=== PATIENT | female | born 1940 | race Two or more races ===

== ENCOUNTER 2024-07-01 15:29 | Inpatient (IN) | payer OTHER ==
[~2024-07-01] VITALS: Ht 152.4 cm; Wt 61.2 kg
[2024-07-01] MEDS ORDERED: AMLODIPINE-OLM1 EACH PO (16:24)
[2024-07-01] MEDS ORDERED: SIMVASTATIN5 MG PO (16:24)
[2024-07-01] MEDS ORDERED: TOPROL XL25 M1 PO (16:25)
[2024-07-01] MEDS ORDERED: ELIQUIS2.5 MG PO (16:25)
[2024-07-01] MEDS ORDERED: LEVO-T112 MCG PO (16:25)
[2024-07-01] MEDS ORDERED: PROTONIX20 MG PO (16:26)
--- NOTE | 2024-07-01 16:26 | NUR ---
SE RECIBE PACIENTE ALERTA Y ORIENTADA, REFIERE DOLOR ABDOMINAR DESDE JOCELYN SEMANA CON VOMITO NAUSEAS Y FALTA DE APETITO
[2024-07-01] MEDS ORDERED: 0.9 % SODIUM CHLORIDE 500 ML IV ONE (18:15)
[2024-07-01] MEDS ORDERED: ONDANSETRON HCL 2 MG/ML VIAL IV ONE (18:15)
[2024-07-01] MEDS ORDERED: FAMOTIDINE/PF 20 MG/2 ML VIAL IV ONE (18:15)
--- NOTE | 2024-07-01 18:32 | NUR ---
PTE FEMENINA EVALUADA POR . SE ORIENTA SOBRE ORDEN DE TX REFIERE COMPRENDER. SE COLECTAN MUESTRAS DE LABORATORIOS Y SE CANALIZA VENA BAJO MEDIDAS ASEPTICAS. SE ADMINISTRAN MEDICAMENTOS, BAJO MEDIDAS ASEPTICAS. SE NOTIFICA A RADIOLOGIA PARA XRAY Y SONOGRAFIA.
[2024-07-01 18:54] LABS: HEMATOCRIT 40.6 % (36.0-45.00); HEMOGLOBIN 12.6 g/dL (12.0-15.00); MEAN CORPUSCULAR HEMOGLOBIN 21.1 pg (27.00-32.0); PLATELET COUNT 236 K/uL (150-450); RED BLOOD COUNT 5.96 M/uL (4.00-6.00); RED CELL DISTRIBUTION WIDTH 21.9 % (11.5-14.5)
[2024-07-01 19:02] LABS: ALBUMIN 3.9 gm/dL (3.4-5.0); BILIRUBIN TOTAL 1.06 mg/dL (0.3-1.2); CALCIUM 9.4 mg/dL (8.5-10.1); CREATININE SERUM 1.13 mg/dL (0.55-1.02); GFR 46.21; GLOBULINA 4.2 G/DL (2.4-3.5); POTASSIUM 3.42 mEq/L (3.5-5.1); TOTAL PROTEIN 8.1 gm/dL (6.4-8.2)
[2024-07-01 19:08] LABS: MEAN CELL VOLUME 68.1 fL (80.00-100.00)
[2024-07-01] MEDS ORDERED: DILTIAZEM HCL 25 MG/5 ML VIAL IV ONE (19:45)
[2024-07-01] MEDS ORDERED: DILTIAZEM HCL 125 MG in 0.9 % SODIUM CHLORIDE 125 ML IV SCH (19:45)
--- NOTE | 2024-07-01 20:11 | NUR ---
SE UBICA A PTE EN UNIDAD DE CHEST PAIN EN CAMA #17. SE CONECTA A MONITOR CARDIACO Y OXIMETRIA DE PULSO CONTINUA. SE CANALIZA EN BRAZO CECILY CON ANGIO #20, SE JOSH MUESTRAS DE LAB Y SE ADMINISTRA PIETER DE CARDIZEM 20MG Y SE COLOCA DRIP DE CARDIZEM 125/100ML A 5 MLS/HR
[2024-07-01 20:36] LABS: INR 1.05; PARTIAL THROMBOPLASTIN TIME 20.2 SECONDS (22.0-34.0); PROTHROMBIN TIME 11.4 SECONDS (9.0-11.5)
[2024-07-01 20:52] LABS: ALT/SGPT 22 U/L (12-78); AST/SGOT 30 U/L (15-37); LDH 438 U/L (84-246); PHOSPHOKINASE CREATININE 118 U/L (26-192)
--- NOTE | 2024-07-01 22:18 | NUR ---
SE ORIENTA PTE SOBRE TX A SEGUIR, LA MISMA REFIERE ENTENDER. SE INSERTA NGT EN FOSA NASAL IZQUIERDA BAJO MEDIDAS ASEPTICAS. SE CONECTA A SUCCION INTERMITENTE, Y DRENA AL MOMENTO 900ML
[2024-07-01] MEDS ORDERED: CEFTRIAXONE SODIUM 2,000 MG in 0.9 % SODIUM CHLORIDE 100 ML IV SCH (22:33)
[2024-07-01] MEDS ORDERED: ENOXAPARIN SODIUM 60 MG/0.6 ML SYRINGE SUBCUTANEO SCH (22:34)
[2024-07-01] MEDS ORDERED: MORPHINE SULFATE 4 MG/ML CARTRIDGE IV PRN (22:45)
[2024-07-01] MEDS ORDERED: 0.9 % SODIUM CHLORIDE 1,000 ML IV SCH (22:45)
[2024-07-01] MEDS ORDERED: ONDANSETRON HCL 4 MG in 0.9 % SODIUM CHLORIDE 50 ML IV PRN (22:45)
[2024-07-01] MEDS ORDERED: ACETAMINOPHEN 500 MG GEL..CAP PO PRN (22:45)
[2024-07-02] VITALS (10 sets, daily range): BP systolic 121–155; BP diastolic 60–87; O2SAT 98–100
[2024-07-02] MEDS ORDERED: METRONIDAZOLE/SODIUM CHLORIDE 100 ML IV SCH (01:00)
[2024-07-02 01:09] LABS: INR 1.06; PARTIAL THROMBOPLASTIN TIME 23.6 SECONDS (22.0-34.0); PROTHROMBIN TIME 11.5 SECONDS (9.0-11.5)
[2024-07-02 01:10] LABS: URINE APPEARANCE Clear; URINE BILIRRUBIN Negative (NEGATIVE); URINE BLOOD Trace; URINE COLOR Yellow; URINE GLUCOSE Negative (NEGATIVE); URINE KETONE 15 (NEGATIVE); URINE LEUKOCYTE Negative; URINE NITRATE Negative
[2024-07-02 01:14] LABS: URINE EPITHELIAL CELLS 2.3 uL (0.0-38.8); URINE RBC 8.8 uL (0.0-20.8); URINE WBC 7.8 uL (0.0-23.2)
[2024-07-02 01:17] LABS: C-REACTIVE PROTEIN < 0.29 MG/DL (0.00-0.29)
[2024-07-02 01:36] LABS: URINE CAST 0.91 uL (0.0-1.40); URINE PROTEIN 300 (NEGATIVE)
[2024-07-02] MEDS ORDERED: DILTIAZEM HCL 125 MG in 0.9 % SODIUM CHLORIDE 100 ML IV SCH (07:00)
[2024-07-02] MEDS ORDERED: FAMOTIDINE/PF 20 MG in 0.9 % SODIUM CHLORIDE 8 ML IV PUSH SCH (09:00)
[2024-07-03] VITALS (8 sets, daily range): BP systolic 111–127; BP diastolic 73–78; O2SAT 96–100
[2024-07-03 07:17] LABS: HEMATOCRIT 38.8 % (36.0-45.00); HEMOGLOBIN 12.3 g/dL (12.0-15.00); MEAN CORPUSCULAR HEMOGLOBIN 21.3 pg (27.00-32.0); MEAN CORPUSCULAR HGB CONC 31.6 g/dl (32.0-36.0); PLATELET COUNT 170 K/uL (150-450); RED BLOOD COUNT 5.78 M/uL (4.00-6.00); RED CELL DISTRIBUTION WIDTH 21.5 % (11.5-14.5)
[2024-07-03 07:20] LABS: MEAN CELL VOLUME 67.2 fL (80.00-100.00)
[2024-07-03 08:00] LABS: ALBUMIN 2.7 gm/dL (3.4-5.0); BILIRUBIN TOTAL 0.59 mg/dL (0.3-1.2); CALCIUM 7.7 mg/dL (8.5-10.1); CREATININE SERUM 0.95 mg/dL (0.55-1.02); GFR 56.46; GLOBULINA 3.1 G/DL (2.4-3.5); MAGNESIUM 2.3 mg/dL (1.8-2.4); PHOSPHOROUS 2.6 mg/dL (2.5-4.9); TOTAL PROTEIN 5.8 gm/dL (6.4-8.2)
[2024-07-03 08:29] LABS: C-REACTIVE PROTEIN 8.5 MG/DL (0.00-0.29); POTASSIUM 2.64 mEq/L (3.5-5.1)
[2024-07-03] MEDS ORDERED: POTASSIUM CHLORIDE 20MEQ/100ML H2O PB IV SCH (09:00)
[2024-07-03] MEDS ORDERED: MAGNESIUM SULFATE IN WATER 2 GM/50 ML PIGGYBAG IV NR (10:00)
[2024-07-03] MEDS ORDERED: DIATRIZOATE MEGLUMINE, SODIUM 30 ML BOTTLE PO NR (14:00)
[2024-07-04] VITALS (8 sets, daily range): BP systolic 105–119; BP diastolic 66–73; O2SAT 96–100
[2024-07-04] MEDS ORDERED: DIATRIZOATE MEGLUMINE, SODIUM 30 ML BOTTLE PO NR (08:15)
[2024-07-04] MEDS ORDERED: POTASSIUM CHLORIDE 20MEQ/100ML H2O PB IV SCH ×2 (13:00→21:00)
[2024-07-04] MEDS ORDERED: MORPHINE SULFATE 4 MG/ML VIAL IV ONE (22:10)
[2024-07-05] VITALS (8 sets, daily range): BP systolic 122–138; BP diastolic 64–79; O2SAT 95–100
[2024-07-05 01:16] LABS: ALBUMIN 2.9 gm/dL (3.4-5.0); BILIRUBIN TOTAL 0.62 mg/dL (0.3-1.2); CALCIUM 8.4 mg/dL (8.5-10.1); CREATININE SERUM 1.08 mg/dL (0.55-1.02); GFR 48.69; GLOBULINA 3.6 G/DL (2.4-3.5); POTASSIUM 3.21 mEq/L (3.5-5.1); TOTAL PROTEIN 6.5 gm/dL (6.4-8.2)
[2024-07-05] MEDS ORDERED: MORPHINE SULFATE 4 MG/ML VIAL IV STA (01:23)
[2024-07-05] MEDS ORDERED: MORPHINE SULFATE 4 MG/ML CARTRIDGE IV PRN (01:30)
[2024-07-05] MEDS ORDERED: POTASSIUM CHLORIDE IN WATER 100 ML IV SCH (13:00)
[2024-07-06] VITALS (8 sets, daily range): BP systolic 112–139; BP diastolic 52–85; O2SAT 95–100
[2024-07-06 08:04] LABS: HEMATOCRIT 40.8 % (36.0-45.00); HEMOGLOBIN 12.6 g/dL (12.0-15.00); MEAN CORPUSCULAR HGB CONC 30.9 g/dl (32.0-36.0); PLATELET COUNT 176 K/uL (150-450); RED CELL DISTRIBUTION WIDTH 22.3 % (11.5-14.5)
[2024-07-06 08:38] LABS: ALBUMIN 2.6 gm/dL (3.4-5.0); BILIRUBIN TOTAL 0.52 mg/dL (0.3-1.2); CALCIUM 8.1 mg/dL (8.5-10.1); CREATININE SERUM 0.92 mg/dL (0.55-1.02); GFR 58.59; GLOBULINA 3.2 G/DL (2.4-3.5); MAGNESIUM 2.1 mg/dL (1.8-2.4); POTASSIUM 3.69 mEq/L (3.5-5.1); TOTAL PROTEIN 5.8 gm/dL (6.4-8.2)
[2024-07-06 10:41] LABS: C-REACTIVE PROTEIN 18.4 MG/DL (0.00-0.29)
[2024-07-06] MEDS ORDERED: POTASSIUM PHOS,M-BASIC-D-BASIC 3 MM/ML VIAL IV SCH (17:00)
[2024-07-06] MEDS ORDERED: MEROPENEM 500 MG/VIAL VIAL IV SCH (21:00)
[2024-07-07] VITALS (7 sets, daily range): BP systolic 138–160; BP diastolic 75–87; O2SAT 97–100
[2024-07-07 07:47] LABS: ALBUMIN 2.7 gm/dL (3.4-5.0); BILIRUBIN TOTAL 0.52 mg/dL (0.3-1.2); CALCIUM 8.3 mg/dL (8.5-10.1); CREATININE SERUM 0.75 mg/dL (0.55-1.02); GFR 74.16; GLOBULINA 3.7 G/DL (2.4-3.5); MAGNESIUM 2.1 mg/dL (1.8-2.4); POTASSIUM 3.72 mEq/L (3.5-5.1); TOTAL PROTEIN 6.4 gm/dL (6.4-8.2)
[2024-07-07 08:16] LABS: HEMATOCRIT 39.2 % (36.0-45.00); HEMOGLOBIN 12.3 g/dL (12.0-15.00); MEAN CORPUSCULAR HEMOGLOBIN 21.2 pg (27.00-32.0); MEAN CORPUSCULAR HGB CONC 31.3 g/dl (32.0-36.0); PLATELET COUNT 177 K/uL (150-450); RED CELL DISTRIBUTION WIDTH 22.5 % (11.5-14.5)
[2024-07-07 08:30] LABS: MEAN CELL VOLUME 67.5 fL (80.00-100.00)
[2024-07-07 08:43] LABS: C-REACTIVE PROTEIN 17.1 MG/DL (0.00-0.29); PHOSPHOROUS 1.6 mg/dL (2.5-4.9)
[2024-07-07] MEDS ORDERED: SODIUM CHLORIDE 0.45 % 1,000 ML IV SCH (09:15)
[2024-07-07] MEDS ORDERED: DEXTROSE IV ONE (12:00)
[2024-07-07] MEDS ORDERED: POTASSIUM PHOS M BASIC D BASIC IV ONE (12:00)
[2024-07-07] MEDS ORDERED: WATER IV ONE (12:00)
[2024-07-07 12:43] LABS: URINE APPEARANCE Cloudy; URINE BILIRRUBIN Negative (NEGATIVE); URINE BLOOD Moderate; URINE COLOR Dark Yellow; URINE GLUCOSE Negative (NEGATIVE); URINE LEUKOCYTE Trace; URINE NITRATE Negative; URINE UROBILINOGEN 0.2 E.U./dl
[2024-07-07 12:47] LABS: URINE BACTERIA 23.2 uL (0.0-1933); URINE EPITHELIAL CELLS 5.5 uL (0.0-38.8); URINE RBC 1189.4 uL (0.0-20.8); URINE WBC 13.1 uL (0.0-23.2)
[2024-07-07 13:10] LABS: URINE CAST 0.88 uL (0.0-1.40); URINE KETONE 40 (NEGATIVE); URINE PROTEIN 100 (NEGATIVE)
[2024-07-07] MEDS ORDERED: SUCRALFATE 1 G TABLET PO SCH (17:00)
[2024-07-07] MEDS ORDERED: MAG HYDROX/ALUMINUM HYD/SIMETH 30 ML BLIST.PACK PO SCH (17:00)
[2024-07-08] VITALS (8 sets, daily range): BP systolic 127–137; BP diastolic 66–91; O2SAT 97–100
[2024-07-08] MEDS ORDERED: VANCOMYCIN HCL 5 MG/ML REDILUIDO IV SCH (21:00)
[2024-07-09] VITALS (8 sets, daily range): BP systolic 125–140; BP diastolic 63–80; O2SAT 98–100
[2024-07-09 07:42] LABS: HEMATOCRIT 36.9 % (36.0-45.00); HEMOGLOBIN 11.2 g/dL (12.0-15.00); MEAN CORPUSCULAR HEMOGLOBIN 20.7 pg (27.00-32.0); MEAN CORPUSCULAR HGB CONC 30.4 g/dl (32.0-36.0); PLATELET COUNT 222 K/uL (150-450); RED BLOOD COUNT 5.42 M/uL (4.00-6.00); RED CELL DISTRIBUTION WIDTH 22.7 % (11.5-14.5)
[2024-07-09 07:46] LABS: MEAN CELL VOLUME 68.1 fL (80.00-100.00)
[2024-07-09] MEDS ORDERED: DIATRIZOATE MEGLUMINE, SODIUM 30 ML BOTTLE PO STA (08:22)
[2024-07-09] MEDS ORDERED: PANTOPRAZOLE SODIUM 40 MG/VIAL VIAL IV SCH (09:00)
[2024-07-09 09:04] LABS: ALBUMIN 2.3 gm/dL (3.4-5.0); BILIRUBIN TOTAL 0.73 mg/dL (0.3-1.2); CALCIUM 7.9 mg/dL (8.5-10.1); CREATININE SERUM 0.63 mg/dL (0.55-1.02); GFR 90.69; GLOBULINA 3.3 G/DL (2.4-3.5); MAGNESIUM 2.2 mg/dL (1.8-2.4); PHOSPHOROUS 2.3 mg/dL (2.5-4.9); POTASSIUM 3.68 mEq/L (3.5-5.1); TOTAL PROTEIN 5.6 gm/dL (6.4-8.2)
[2024-07-09 09:23] LABS: C-REACTIVE PROTEIN 5.69 MG/DL (0.00-0.29)
[2024-07-09] MEDS ORDERED: VANCOMYCIN HCL 1,000 MG VIAL IV NR (11:30)
[2024-07-09] MEDS ORDERED: PANTOPRAZOLE SODIUM 80 MG in 0.9 % SODIUM CHLORIDE 100 ML IV SCH (11:45)
[2024-07-09] MEDS ORDERED: BISACODYL 10 MG/SUPP.RECT SUPP.RECT RECTAL NR (15:45)
[2024-07-09] MEDS ORDERED: METOCLOPRAMIDE HCL 5 MG/ML VIAL IV SCH (17:00)
[2024-07-10] VITALS (8 sets, daily range): BP systolic 90–114; BP diastolic 50–73; O2SAT 98–100
[2024-07-10] MEDS ORDERED: VANCOMYCIN HCL 5 MG/ML REDILUIDO IV SCH
[2024-07-10] MEDS ORDERED: NOREPINEPHRINE BITARTRATE 4 MG in DEXTROSE 5 % IN WATER 250 ML IV SCH (08:00)
[2024-07-10] MEDS ORDERED: NOREPINEPHRINE BITARTRATE 8 MG in DEXTROSE 5 % IN WATER 250 ML IV SCH (08:45)
[2024-07-10 08:49] LABS: HEMATOCRIT 30.7 % (36.0-45.00); HEMOGLOBIN 9.3 g/dL (12.0-15.00); MEAN CORPUSCULAR HEMOGLOBIN 20.8 pg (27.00-32.0); MEAN CORPUSCULAR HGB CONC 30.4 g/dl (32.0-36.0); PLATELET COUNT 230 K/uL (150-450); RED BLOOD COUNT 4.48 M/uL (4.00-6.00); RED CELL DISTRIBUTION WIDTH 22.2 % (11.5-14.5)
[2024-07-10 08:53] LABS: MEAN CELL VOLUME 68.5 fL (80.00-100.00)
[2024-07-10 10:25] LABS: ALBUMIN 2.4 gm/dL (3.4-5.0); BILIRUBIN TOTAL 0.97 mg/dL (0.3-1.2); CALCIUM 8.1 mg/dL (8.5-10.1); CREATININE SERUM 1.21 mg/dL (0.55-1.02); GFR 42.7; GLOBULINA 3.2 G/DL (2.4-3.5); POTASSIUM 4.46 mEq/L (3.5-5.1); TOTAL PROTEIN 5.6 gm/dL (6.4-8.2)
[2024-07-10] MEDS ORDERED: 0.9 % SODIUM CHLORIDE 1,000 ML IV SCH (13:37)
[2024-07-10 15:43] LABS: CALCIUM 7.9 mg/dL (8.5-10.1); CHOL HDL RATIO 2.3 (0-5.0); CREATININE SERUM 1.22 mg/dL (0.55-1.02); GFR 42.3; POTASSIUM 4.62 mEq/L (3.5-5.1)
[2024-07-10] MEDS ORDERED: AA 4.25%/CAL/LYTES/DEXT 5% 1,000 ML PERIFERAL SCH (17:00)
[2024-07-10 17:29] LABS: ABG PH 7.433 (7.35-7.45); ABG PO2 94.6 mmHg (80-100); ABG pCO2 32.3 mmHg (35-45); BASE EXCESS -2.2 mmol/l; BICARBONATE 21.1 mmol/l (23-25); SaO2 97.5 %; Tco2 22.1 mmol/l
[2024-07-10 17:55] LABS: allen test SATISFACTORY; o2 21 %; puncture site RADIAL RIGHT
[2024-07-11] VITALS (20 sets, daily range): BP systolic 73–166; BP diastolic 55–95; O2SAT 99–100
[2024-07-11 06:40] LABS: HEMATOCRIT 25.3 % (36.0-45.00); MEAN CORPUSCULAR HGB CONC 30.6 g/dl (32.0-36.0); PLATELET COUNT 229 K/uL (150-450); RED BLOOD COUNT 3.68 M/uL (4.00-6.00); RED CELL DISTRIBUTION WIDTH 22.5 % (11.5-14.5)
[2024-07-11] MEDS ORDERED: 0.9 % SODIUM CHLORIDE 500 ML IV ONE (06:45)
[2024-07-11 06:48] LABS: ALBUMIN 2.3 gm/dL (3.4-5.0); BILIRUBIN TOTAL 0.8 mg/dL (0.3-1.2); CALCIUM 7.9 mg/dL (8.5-10.1); CREATININE SERUM 1.4 mg/dL (0.55-1.02); GFR 36.09; GLOBULINA 2.9 G/DL (2.4-3.5); POTASSIUM 4.57 mEq/L (3.5-5.1); TOTAL PROTEIN 5.2 gm/dL (6.4-8.2)
[2024-07-11 07:59] LABS: HEMOGLOBIN 7.8 g/dL (12.0-15.00); MEAN CELL VOLUME 68.8 fL (80.00-100.00); MEAN CORPUSCULAR HEMOGLOBIN 21.1 pg (27.00-32.0)
[2024-07-11] MEDS ORDERED: ANIDULAFUNGIN 100 MG VIAL IV NR (18:00)
[2024-07-12] VITALS (20 sets, daily range): BP systolic 84–169; BP diastolic 53–99; O2SAT 95–100
[2024-07-12] MEDS ORDERED: VANCOMYCIN HCL 5 MG/ML REDILUIDO IV SCH (12:00)
[2024-07-12] MEDS ORDERED: VANCOMYCIN HCL 1,000 MG VIAL IV SCH (14:45)
[2024-07-12 15:28] LABS: BILIRUBIN TOTAL 0.82 mg/dL (0.3-1.2); CALCIUM 7.2 mg/dL (8.5-10.1); CREATININE SERUM 1.15 mg/dL (0.55-1.02); GFR 45.29; GLOBULINA 2.6 G/DL (2.4-3.5); POTASSIUM 4.01 mEq/L (3.5-5.1); TOTAL PROTEIN 4.6 gm/dL (6.4-8.2)
[2024-07-12] MEDS ORDERED: ANIDULAFUNGIN 100 MG VIAL IV SCH (17:00)
[2024-07-13] VITALS (23 sets, daily range): BP systolic 82–135; BP diastolic 51–96; O2SAT 15–109
[2024-07-13 17:26] LABS: MEAN CELL VOLUME 74.7 fL (80.00-100.00); MEAN CORPUSCULAR HGB CONC 32.6 g/dl (32.0-36.0); PLATELET COUNT 164 K/uL (150-450); RED BLOOD COUNT 2.91 M/uL (4.00-6.00)
[2024-07-13 17:29] LABS: HEMATOCRIT 21.7 % (36.0-45.00); HEMOGLOBIN 7.1 g/dL (12.0-15.00); MEAN CORPUSCULAR HEMOGLOBIN 24.3 pg (27.00-32.0)
[2024-07-13] MEDS ORDERED: 0.9 % SODIUM CHLORIDE 1,000 ML IV SCH (23:45)
[2024-07-14] VITALS (23 sets, daily range): BP systolic 10–116; BP diastolic 51–99; O2SAT 0–100
[2024-07-14] MEDS ORDERED: SERTRALINE HCL 50 MG TABLET PO SCH (09:00)
[2024-07-14 23:42] LABS: MEAN CELL VOLUME 79.9 fL (80.00-100.00); MEAN CORPUSCULAR HGB CONC 32.4 g/dl (32.0-36.0); PLATELET COUNT 145 K/uL (150-450); RED BLOOD COUNT 2.94 M/uL (4.00-6.00); RED CELL DISTRIBUTION WIDTH 20.6 % (11.5-14.5)
[2024-07-14 23:44] LABS: MEAN CORPUSCULAR HEMOGLOBIN 25.8 pg (27.00-32.0)
[2024-07-14 23:45] LABS: HEMATOCRIT 23.5 % (36.0-45.00); HEMOGLOBIN 7.6 g/dL (12.0-15.00)
[2024-07-15] VITALS (19 sets, daily range): BP systolic 64–142; BP diastolic 36–127; O2SAT 20–100
[2024-07-15 00:14] LABS: ALBUMIN 1.8 gm/dL (3.4-5.0); BILIRUBIN TOTAL 1.11 mg/dL (0.3-1.2); CALCIUM 7.5 mg/dL (8.5-10.1); CREATININE SERUM 0.76 mg/dL (0.55-1.02); GFR 73.04; GLOBULINA 2.4 G/DL (2.4-3.5); MAGNESIUM 1.8 mg/dL (1.8-2.4); POTASSIUM 3.85 mEq/L (3.5-5.1); TOTAL PROTEIN 4.2 gm/dL (6.4-8.2)
[2024-07-15 00:43] LABS: PHOSPHOROUS 1.6 mg/dL (2.5-4.9)
[2024-07-15] MEDS ORDERED: PANTOPRAZOLE SODIUM 80 MG in 0.9 % SODIUM CHLORIDE 100 ML IV SCH (02:45)
[2024-07-15] MEDS ORDERED: FUROsemide 20 MG/2 ML VIAL IV SCH (03:30)
[2024-07-15] MEDS ORDERED: DIATRIZOATE MEGLUMINE, SODIUM 30 ML BOTTLE PO NR (09:30)
[2024-07-15] MEDS ORDERED: CALCIUM GLUCONATE 100 MG/ML VIAL IV NR (09:30)
[2024-07-15] MEDS ORDERED: CALCIUM GLUCONATE 100 MG/ML VIAL IV ONE (16:00)
[2024-07-15] MEDS ORDERED: MEROPENEM 500 MG/VIAL VIAL IV SCH (21:00)
[2024-07-16] VITALS (8 sets, daily range): BP systolic 87–115; BP diastolic 56–72; O2SAT 98–100
[2024-07-16 00:36] LABS: HEMATOCRIT 29.6 % (36.0-45.00); MEAN CELL VOLUME 81.2 fL (80.00-100.00); MEAN CORPUSCULAR HEMOGLOBIN 27.4 pg (27.00-32.0); MEAN CORPUSCULAR HGB CONC 33.7 g/dl (32.0-36.0); PLATELET COUNT 161 K/uL (150-450); RED BLOOD COUNT 3.64 M/uL (4.00-6.00); RED CELL DISTRIBUTION WIDTH 18.7 % (11.5-14.5)
[2024-07-16 10:16] LABS: HEMATOCRIT 28.9 % (36.0-45.00); HEMOGLOBIN 9.6 g/dL (12.0-15.00); MEAN CELL VOLUME 83.4 fL (80.00-100.00); MEAN CORPUSCULAR HEMOGLOBIN 27.7 pg (27.00-32.0); MEAN CORPUSCULAR HGB CONC 33.3 g/dl (32.0-36.0); PLATELET COUNT 160 K/uL (150-450); RED BLOOD COUNT 3.46 M/uL (4.00-6.00); RED CELL DISTRIBUTION WIDTH 18.5 % (11.5-14.5)
[2024-07-16 11:08] LABS: PARTIAL THROMBOPLASTIN TIME 30.2 SECONDS (22.0-34.0)
[2024-07-16 11:09] LABS: ALBUMIN 1.9 gm/dL (3.4-5.0); BILIRUBIN TOTAL 0.84 mg/dL (0.3-1.2); BILIRUBIN,CONJUGATED 0.3 mg/dL (0.0-0.2); BILIRUBIN,UNCONJUGATED 0.54 mg/dL (0.0-0.6); CALCIUM 7.8 mg/dL (8.5-10.1); CHOL HDL RATIO 3.3 (0-5.0); CREATININE SERUM 0.88 mg/dL (0.55-1.02); GFR 61.67; GLOBULINA 2.5 G/DL (2.4-3.5); MAGNESIUM 2.1 mg/dL (1.8-2.4); POTASSIUM 4.12 mEq/L (3.5-5.1); TOTAL PROTEIN 4.4 gm/dL (6.4-8.2)
[2024-07-16] MEDS ORDERED: fentaNYL CITRATE 50 MCG/ML AMPUL IV PUSH ONE (22:00)
[2024-07-16] MEDS ORDERED: MIDAZOLAM HCL 2 MG/2 ML VIAL IV PUSH ONE (22:00)
[2024-07-17 04:00] VITALS: BP 104/89; O2SAT 100
[2024-07-17 07:00] VITALS: BP 100/54; O2SAT 100
[2024-07-17 09:45] LABS: HEMATOCRIT 27.5 % (36.0-45.00); HEMOGLOBIN 9.2 g/dL (12.0-15.00); MEAN CELL VOLUME 83.2 fL (80.00-100.00); MEAN CORPUSCULAR HGB CONC 33.6 g/dl (32.0-36.0); PLATELET COUNT 180 K/uL (150-450); RED CELL DISTRIBUTION WIDTH 19.4 % (11.5-14.5)
[2024-07-17 12:00] VITALS: BP 99/74; O2SAT 100
[2024-07-17 15:16] VITALS: BP 101/59; O2SAT 100
[2024-07-17 20:00] VITALS: BP 106/68; O2SAT 100
[2024-07-17 23:24] VITALS: BP 103/50; O2SAT 100
[2024-07-18] VITALS (7 sets, daily range): BP systolic 95–119; BP diastolic 52–93; O2SAT 96–100
[2024-07-18 06:34] LABS: HEMATOCRIT 24.2 % (36.0-45.00); MEAN CORPUSCULAR HEMOGLOBIN 28.1 pg (27.00-32.0); MEAN CORPUSCULAR HGB CONC 33.5 g/dl (32.0-36.0); PLATELET COUNT 155 K/uL (150-450); RED BLOOD COUNT 2.88 M/uL (4.00-6.00); RED CELL DISTRIBUTION WIDTH 20.1 % (11.5-14.5)
[2024-07-18 06:46] LABS: HEMOGLOBIN 8.1 g/dL (12.0-15.00)
[2024-07-18 07:02] LABS: ALBUMIN 1.6 gm/dL (3.4-5.0); BILIRUBIN TOTAL 0.59 mg/dL (0.3-1.2); CREATININE SERUM 0.67 mg/dL (0.55-1.02); GFR 84.47; GLOBULINA 2.3 G/DL (2.4-3.5); MAGNESIUM 2.1 mg/dL (1.8-2.4); PHOSPHOROUS 2.1 mg/dL (2.5-4.9); POTASSIUM 3.54 mEq/L (3.5-5.1); TOTAL PROTEIN 3.9 gm/dL (6.4-8.2)
[2024-07-18 07:03] LABS: CALCIUM 7.4 mg/dL (8.5-10.1)
[2024-07-18] MEDS ORDERED: MIDAZOLAM HCL 2 MG/2 ML VIAL IV PUSH ONE (12:45)
[2024-07-18 22:07] LABS: HEMATOCRIT 33.2 % (36.0-45.00); HEMOGLOBIN 10.9 g/dL (12.0-15.00); MEAN CELL VOLUME 85.1 fL (80.00-100.00); MEAN CORPUSCULAR HEMOGLOBIN 27.9 pg (27.00-32.0); MEAN CORPUSCULAR HGB CONC 32.8 g/dl (32.0-36.0); PLATELET COUNT 153 K/uL (150-450); RED CELL DISTRIBUTION WIDTH 18.5 % (11.5-14.5)
[2024-07-19 04:00] VITALS: BP 114/83; O2SAT 100
[2024-07-19 06:50] LABS: HEMATOCRIT 30.8 % (36.0-45.00); HEMOGLOBIN 10.5 g/dL (12.0-15.00); MEAN CELL VOLUME 84.7 fL (80.00-100.00); MEAN CORPUSCULAR HEMOGLOBIN 28.7 pg (27.00-32.0); MEAN CORPUSCULAR HGB CONC 33.9 g/dl (32.0-36.0); PLATELET COUNT 148 K/uL (150-450); RED BLOOD COUNT 3.64 M/uL (4.00-6.00); RED CELL DISTRIBUTION WIDTH 18.7 % (11.5-14.5)
[2024-07-19 07:17] VITALS: BP 100/86; O2SAT 100
[2024-07-19] MEDS ORDERED: PANTOPRAZOLE SODIUM 40 MG/VIAL VIAL IV SCH (09:34)
[2024-07-19 12:00] VITALS: BP 112/80; O2SAT 100
[2024-07-19 15:30] VITALS: BP 99/54; O2SAT 100
[2024-07-19 20:00] VITALS: BP 106/70
[2024-07-20] VITALS (7 sets, daily range): BP systolic 82–115; BP diastolic 50–77; O2SAT 100
[2024-07-20 05:20] LABS: URINE APPEARANCE Clear; URINE BILIRRUBIN Negative (NEGATIVE); URINE BLOOD Moderate; URINE COLOR Yellow; URINE GLUCOSE Negative (NEGATIVE); URINE KETONE Negative (NEGATIVE); URINE LEUKOCYTE Negative; URINE NITRATE Negative; URINE PROTEIN 30 (NEGATIVE)
[2024-07-20 05:23] LABS: URINE BACTERIA 20.7 uL (0.0-1933); URINE EPITHELIAL CELLS 6.9 uL (0.0-38.8); URINE WBC 6.1 uL (0.0-23.2)
[2024-07-20 05:24] LABS: HEMATOCRIT 31.7 % (36.0-45.00); HEMOGLOBIN 10.6 g/dL (12.0-15.00); MEAN CELL VOLUME 84.6 fL (80.00-100.00); MEAN CORPUSCULAR HEMOGLOBIN 28.3 pg (27.00-32.0); MEAN CORPUSCULAR HGB CONC 33.5 g/dl (32.0-36.0); PLATELET COUNT 149 K/uL (150-450); RED BLOOD COUNT 3.75 M/uL (4.00-6.00); RED CELL DISTRIBUTION WIDTH 18.8 % (11.5-14.5)
[2024-07-20 05:35] LABS: URINE CAST 0.29 uL (0.0-1.40)
[2024-07-20 05:50] LABS: ALBUMIN 1.5 gm/dL (3.4-5.0); BILIRUBIN TOTAL 0.57 mg/dL (0.3-1.2); CALCIUM 7.5 mg/dL (8.5-10.1); CREATININE SERUM 0.57 mg/dL (0.55-1.02); GFR 101.8; GLOBULINA 2.8 G/DL (2.4-3.5); POTASSIUM 3.12 mEq/L (3.5-5.1); TOTAL PROTEIN 4.3 gm/dL (6.4-8.2)
[2024-07-20 05:53] LABS: PHOSPHOROUS 1.9 mg/dL (2.5-4.9)
[2024-07-20] MEDS ORDERED: AMIODARONE HCL 200 MG TABLET PO SCH (09:00)
[2024-07-21 04:00] VITALS: BP 117/73; O2SAT 100
[2024-07-21 07:25] VITALS: BP 113/73; O2SAT 100
[2024-07-21] MEDS ORDERED: DIATRIZOATE MEGLUMINE, SODIUM 30 ML BOTTLE PO NR (09:30)
[2024-07-21] MEDS ORDERED: ONDANSETRON HCL 2 MG/ML VIAL IV PRN (10:30)
[2024-07-21 12:00] VITALS: BP 80/62; O2SAT 99
[2024-07-21 15:22] VITALS: BP 94/74; O2SAT 99
[2024-07-21 20:00] VITALS: BP 106/70; O2SAT 100
[2024-07-21 23:32] VITALS: BP 115/77; O2SAT 100
[2024-07-22] VITALS (9 sets, daily range): BP systolic 79–119; BP diastolic 56–83; O2SAT 94–100
[2024-07-22 06:47] LABS: HEMATOCRIT 31.5 % (36.0-45.00); HEMOGLOBIN 10.4 g/dL (12.0-15.00); MEAN CORPUSCULAR HEMOGLOBIN 28.5 pg (27.00-32.0); MEAN CORPUSCULAR HGB CONC 33.1 g/dl (32.0-36.0); PLATELET COUNT 167 K/uL (150-450); RED BLOOD COUNT 3.67 M/uL (4.00-6.00); RED CELL DISTRIBUTION WIDTH 18.9 % (11.5-14.5)
[2024-07-22 07:07] LABS: INR 1.07; PARTIAL THROMBOPLASTIN TIME 32.7 SECONDS (22.0-34.0); PROTHROMBIN TIME 11.6 SECONDS (9.0-11.5)
[2024-07-22 07:28] LABS: ALBUMIN 1.5 gm/dL (3.4-5.0); BILIRUBIN TOTAL 0.48 mg/dL (0.3-1.2); BILIRUBIN,CONJUGATED 0.21 mg/dL (0.0-0.2); BILIRUBIN,UNCONJUGATED 0.27 mg/dL (0.0-0.6); CHOL HDL RATIO 3.8 (0-5.0); CREATININE SERUM 0.49 mg/dL (0.55-1.02); GFR 121.21; MAGNESIUM 2.2 mg/dL (1.8-2.4); POTASSIUM 3.35 mEq/L (3.5-5.1); TOTAL PROTEIN 4.5 gm/dL (6.4-8.2)
[2024-07-22 08:24] LABS: PLATELET ESTIMATE NORMAL (NORMAL)
[2024-07-22] MEDS ORDERED: MEROPENEM 500 MG/VIAL VIAL IV SCH (20:00)
[2024-07-23 04:00] VITALS: BP 99/61; O2SAT 100
[2024-07-23 07:41] VITALS: BP 99/61; O2SAT 100
[2024-07-23] MEDS ORDERED: VANCOMYCIN HCL 5 MG/ML REDILUIDO IV SCH (09:00)
[2024-07-23 11:58] VITALS: BP 88/61; O2SAT 100
[2024-07-23 15:19] VITALS: BP 91/58; O2SAT 100
[2024-07-23 20:00] VITALS: BP 92/56; O2SAT 100
[2024-07-23 23:21] VITALS: BP 97/68; O2SAT 100
[2024-07-24 03:57] VITALS: BP 102/66; O2SAT 100
[2024-07-24 07:28] VITALS: BP 105/73; O2SAT 100
[2024-07-24 07:53] LABS: HEMOGLOBIN 9.3 g/dL (12.0-15.00); MEAN CELL VOLUME 89.3 fL (80.00-100.00); MEAN CORPUSCULAR HEMOGLOBIN 28.6 pg (27.00-32.0); MEAN CORPUSCULAR HGB CONC 32.1 g/dl (32.0-36.0); PLATELET COUNT 142 K/uL (150-450); RED BLOOD COUNT 3.25 M/uL (4.00-6.00); RED CELL DISTRIBUTION WIDTH 19.6 % (11.5-14.5)
[2024-07-24 08:19] LABS: ALBUMIN 1.4 gm/dL (3.4-5.0); BILIRUBIN TOTAL 0.42 mg/dL (0.3-1.2); CALCIUM 7.6 mg/dL (8.5-10.1); CREATININE SERUM 0.55 mg/dL (0.55-1.02); GFR 106.08; GLOBULINA 3.1 G/DL (2.4-3.5); MAGNESIUM 2.6 mg/dL (1.8-2.4); PHOSPHOROUS 2.3 mg/dL (2.5-4.9); POTASSIUM 3.93 mEq/L (3.5-5.1); TOTAL PROTEIN 4.5 gm/dL (6.4-8.2)
[2024-07-24 08:26] LABS: C-REACTIVE PROTEIN 4.56 MG/DL (0.00-0.29)
[2024-07-24 18:29] VITALS: BP 160/80; O2SAT 98
[2024-07-25 02:11] VITALS: BP 114/85; O2SAT 100
[2024-07-25 08:40] VITALS: BP 160/89; O2SAT 98
[2024-07-25 16:49] VITALS: BP 140/80
[2024-07-26 01:01] VITALS: BP 139/77; O2SAT 98
[2024-07-26 09:07] VITALS: BP 134/68; O2SAT 98
== END 2024-07-26 14:29 | DRG 329 ==
LOC: ER 15:31 → ICU 22:42 → ICU-2 22:42 → MEDJ 22:42 → ICU 07-12 20:52 → MEDJ 07-24 10:34
PROVIDERS: General Practice; Internal Medicine; Internal Medicine Infectious Disease; Nurse Practitioner Family; Surgery; ADMIT Internal Medicine; ATTEND Internal Medicine
PROC: BW21ZZZ Computerized Tomography (CT Scan) of Abdomen and Pelvis (ICD-10-PCS; 2024-07-01)
PROC: 0D9670Z Drainage of Stomach with Drainage Device, Via Natural or Artificial Opening (ICD-10-PCS; 2024-07-02)
PROC: 4A12X4Z Monitoring of Cardiac Electrical Activity, External Approach (ICD-10-PCS; 2024-07-02)
PROC: B246ZZZ Ultrasonography of Right and Left Heart (ICD-10-PCS; 2024-07-02)
PROC: BW21YZZ Computerized Tomography (CT Scan) of Abdomen and Pelvis using Other Contrast (ICD-10-PCS; 2024-07-03)
PROC: 0DJD0ZZ Inspection of Lower Intestinal Tract, Open Approach (ICD-10-PCS; 2024-07-04)
PROC: 0DB80ZZ Excision of Small Intestine, Open Approach (ICD-10-PCS; principal; 2024-07-04 19:30)
PROC: BW21YZZ Computerized Tomography (CT Scan) of Abdomen and Pelvis using Other Contrast (ICD-10-PCS; 2024-07-08)
PROC: 06HN33Z Insertion of Infusion Device into Left Femoral Vein, Percutaneous Approach (ICD-10-PCS; 2024-07-10)
PROC: 30233N1 Transfusion of Nonautologous Red Blood Cells into Peripheral Vein, Percutaneous Approach (ICD-10-PCS; 2024-07-11)
PROC: BW21YZZ Computerized Tomography (CT Scan) of Abdomen and Pelvis using Other Contrast (ICD-10-PCS; 2024-07-15)
PROC: 0W9G30Z Drainage of Peritoneal Cavity with Drainage Device, Percutaneous Approach (ICD-10-PCS; 2024-07-16)
PROC: 02HV33Z Insertion of Infusion Device into Superior Vena Cava, Percutaneous Approach (ICD-10-PCS; 2024-07-16)
PROC: 3E0436Z Introduction of Nutritional Substance into Central Vein, Percutaneous Approach (ICD-10-PCS; 2024-07-16)
PROC: 0DJ08ZZ Inspection of Upper Intestinal Tract, Via Natural or Artificial Opening Endoscopic (ICD-10-PCS; 2024-07-18)
PROC: BW21YZZ Computerized Tomography (CT Scan) of Abdomen and Pelvis using Other Contrast (ICD-10-PCS; 2024-07-21)
DX: K56.600 Partial intestinal obstruction, unspecified as to cause (principal); A41.9 Sepsis, unspecified organism; R65.21 Severe sepsis with septic shock; K55.8 Other vascular disorders of intestine; I48.20 Chronic atrial fibrillation, unspecified; K91.89 Other postprocedural complications and disorders of digestive system; E87.0 Hyperosmolality and hypernatremia; K92.2 Gastrointestinal hemorrhage, unspecified; K22.10 Ulcer of esophagus without bleeding; J98.11 Atelectasis; K91.870 Postprocedural hematoma of a digestive system organ or structure following a digestive system procedure; K56.0 Paralytic ileus; D64.89 Other specified anemias; R59.0 Localized enlarged lymph nodes; I11.9 Hypertensive heart disease without heart failure; E03.9 Hypothyroidism, unspecified; Z79.01 Long term (current) use of anticoagulants

== ENCOUNTER 2024-07-31 15:09 | Inpatient (IN) | payer OTHER ==
[~2024-07-31] VITALS: Ht 170.2 cm; Wt 68.0 kg
[~2024-07-31 15:09] MED LIST: AMLODIPINE-OLM1 EACH PO; ELIQUIS2.5 MG PO; HYDROCORTISONE SODIUM SUCC/PF 50 MG/ML ML IV SCH; LEVO-T112 MCG PO; PROTONIX20 MG PO; SIMVASTATIN5 MG PO; TOPROL XL25 M1 PO
[2024-07-31] MEDS ORDERED: LASIX20 MG PO (15:49)
--- NOTE | 2024-07-31 15:49 | NUR ---
SE RECIBE PTE FEMENINA ALERTA Y ORIENTADA EN PERSONA EN AMBULANCIA EN COMPANIA DE FAMILIAR Y PARAMEDICOS REFIEREN PRESION ARTERIAL BAJA, DEBILIDAD Y POSIBLE SEPSIS. PTE TRASLADADA DE "ENCOMPASS", PTE DE Y , FUE OPERADA EL PASADO MES POR OBSTRUCCION INTESTINAL. SE MIDE BP MANUAL 70/40MMHG, SE REALIZA EKG Y SE UBICA EN AREA DE CRITICO CAMA #2, SE CONECTA A MONITOR CARDIACO Y OXIMETRIA DE PULSO CONTINUA. SE OBSERVA PTE CON SONDA URINARIA CON SEDIMENTACION PROVENIENTE DE HOGAR, CANALIZADA CON ANGIO #20 EN MANO L+ DE AMBULANCIA.
--- NOTE | 2024-07-31 16:06 | NUR ---
SE CONECTA PACIENTE A MONITOR CARDIACO Y OXIMETRIA DE PULSO. SE CANALIZA DE MANO DERECHA # 20 Y SE COLOCA 500ML DE R/L FULL DRIP POR ORDEN VERBAL DE DR. RAMOS. SE TEO CANALIZACION DE MANO IZQUIERDA # 20 EN S/L. SE JOSH MUESTRA DE LABORATORIOS ORDENADAS VERBALMENTE POR DR. RAMOS. SE SAUMYA U/C Y U/C DE KRISSY ODELL. SE TEO CANULA A 3L/MIN.
[2024-07-31] MEDS ORDERED: RINGERS SOLUTION,LACTATED 500 ML IV STA (16:07)
[2024-07-31] MEDS ORDERED: NOREPINEPHRINE BITARTRATE 1 MG/ML AMPUL IV ONE (16:13)
[2024-07-31] MEDS ORDERED: NOREPINEPHRINE BITARTRATE 4 MG in DEXTROSE 5 % IN WATER 250 ML IV SCH (16:30)
[2024-07-31] MEDS ORDERED: PIPERACILLIN/TAZOBACTAM SODIUM 3.375 GM VIAL IV ONE (16:48)
[2024-07-31 16:58] LABS: HEMATOCRIT 32.8 % (36.0-45.00); MEAN CELL VOLUME 84.2 fL (80.00-100.00); MEAN CORPUSCULAR HEMOGLOBIN 28.3 pg (27.00-32.0); MEAN CORPUSCULAR HGB CONC 33.6 g/dl (32.0-36.0); RED BLOOD COUNT 3.89 M/uL (4.00-6.00); RED CELL DISTRIBUTION WIDTH 18.4 % (11.5-14.5)
[2024-07-31 17:00] LABS: URINE BACTERIA 1243.5 uL (0.0-1933); URINE CAST 2.65 uL (0.0-1.40); URINE EPITHELIAL CELLS 7.1 uL (0.0-38.8); URINE RBC 3341.5 uL (0.0-20.8); URINE WBC 273.1 uL (0.0-23.2)
[2024-07-31 17:00] LABS: PLATELET COUNT 75 K/uL (150-450)
[2024-07-31 17:21] LABS: INR 1.32; PROTHROMBIN TIME 14.1 SECONDS (9.0-11.5)
[2024-07-31 17:22] LABS: PH,URINE 6.5 (5.0-8.0); URINE APPEARANCE Clear; URINE BILIRRUBIN Negative (NEGATIVE); URINE BLOOD Large; URINE COLOR Orange; URINE GLUCOSE Negative (NEGATIVE); URINE KETONE Negative (NEGATIVE); URINE LEUKOCYTE Moderate; URINE NITRATE Negative; URINE PROTEIN Trace (NEGATIVE); URINE UROBILINOGEN 0.2 E.U./dl
[2024-07-31 17:36] LABS: ALBUMIN 1.6 gm/dL (3.4-5.0); BILIRUBIN TOTAL 0.62 mg/dL (0.3-1.2); BILIRUBIN,CONJUGATED 0.29 mg/dL (0.0-0.2); BILIRUBIN,UNCONJUGATED 0.33 mg/dL (0.0-0.6); CALCIUM 7.6 mg/dL (8.5-10.1); CREATININE SERUM 0.68 mg/dL (0.55-1.02); GFR 83.04; TOTAL PROTEIN 4.8 gm/dL (6.4-8.2)
[2024-07-31 17:40] LABS: POTASSIUM 2.75 mEq/L (3.5-5.1)
[2024-07-31] MEDS ORDERED: POTASSIUM CHLORIDE/NACL 0.9% 20 MEQ/1,000 ML PIGGYBAG IV ONE (17:45)
[2024-07-31] MEDS ORDERED: PIPERACILLIN/TAZOBACTAM SODIUM 3.375 GM VIAL IV SCH (18:00)
[2024-07-31] MEDS ORDERED: POTASSIUM CHLORIDE/D5-0.9%NACL 20 MEQ/1,000 ML PIGGYBAG IV ONE (19:58)
[2024-07-31] MEDS ORDERED: IPRATROPIUM BROMIDE 0.5 MG/2.5 ML AMPUL.NEB IH SCH (20:22)
[2024-07-31] MEDS ORDERED: MEROPENEM 500 MG/VIAL VIAL IV SCH (20:27)
[2024-07-31] MEDS ORDERED: ACETAMINOPHEN 500 MG GEL..CAP PO PRN (20:30)
[2024-07-31] MEDS ORDERED: ONDANSETRON HCL 4 MG in 0.9 % SODIUM CHLORIDE 50 ML IV PRN (20:30)
[2024-07-31] MEDS ORDERED: ALBUMIN HUMAN-25 0.25GM/ML (50ML) VIAL IV ONE (20:30)
[2024-07-31] MEDS ORDERED: 0.9 % SODIUM CHLORIDE 1,000 ML IV SCH (20:30)
[2024-07-31] MEDS ORDERED: POTASSIUM CHLORIDE IN WATER 100 ML IV SCH (21:00)
[2024-07-31 22:13] LABS: PHOSPHOROUS 2.7 mg/dL (2.5-4.9); T4 FREE 0.23 NG/ML (0.76-1.46)
[2024-07-31 22:17] LABS: FREE TRIODOTIRONINE < 0.50 pg/ml (2.18-3.98)
[2024-07-31 22:50] VITALS: BP 81/69; O2SAT 100
[2024-07-31 23:55] VITALS: BP 107/80; O2SAT 99
[2024-08-01] VITALS (21 sets, daily range): BP systolic 64–127; BP diastolic 47–98; O2SAT 94–100
[2024-08-01] MEDS ORDERED: NOREPINEPHRINE BITARTRATE 1 MG/ML AMPUL IV ONE (05:43)
[2024-08-01] MEDS ORDERED: LEVOTHYROXINE SODIUM 137 MCG TABLET PO SCH (06:00)
[2024-08-01] MEDS ORDERED: LEVOTHYROXINE SODIUM 100 MCG/VIAL VIAL IV STA (07:00)
[2024-08-01] MEDS ORDERED: FUROsemide 20 MG/2 ML VIAL IV SCH (09:00)
[2024-08-01] MEDS ORDERED: METOPROLOL SUCCINATE 25 MG TAB.SR.24H PO SCH (09:00)
[2024-08-01] MEDS ORDERED: PANTOPRAZOLE SODIUM 40 MG/VIAL VIAL IV SCH (09:00)
[2024-08-01 10:26] LABS: PROCALCITONIN 0.148 ng/ml (0.020-0.080)
[2024-08-01] MEDS ORDERED: PROPOFOL 10,000 MCG/ML VIAL ONE (10:40)
[2024-08-01] MEDS ORDERED: POLYVINYL ALCOHOL 15 ML DROPS OP SCH (10:58)
[2024-08-01] MEDS ORDERED: CHLORHEXIDINE GLUCONATE 15ML BRUSH KIT MM SCH (10:58)
[2024-08-01] MEDS ORDERED: FentaNYL CITRATE/PF 1,000 MCG in 0.9 % SODIUM CHLORIDE 100 ML IV SCH (11:00)
[2024-08-01 12:03] LABS: CORTISOL 29.75 ug/dl
[2024-08-01] MEDS ORDERED: VANCOMYCIN HCL 1,000 MG VIAL ONE (16:14)
[2024-08-01] MEDS ORDERED: NOREPINEPHRINE BITARTRATE 8 MG in DEXTROSE 5 % IN WATER 250 ML IV SCH (16:30)
[2024-08-01] MEDS ORDERED: VANCOMYCIN HCL 1,000 MG VIAL IV SCH (17:00)
[2024-08-01 22:58] LABS: ABG PH 7.563 (7.35-7.45); ABG PO2 151.6 mmHg (80-100); ABG pCO2 29.6 mmHg (35-45); BASE EXCESS 4.8 mmol/l; BICARBONATE 26.1 mmol/l (23-25); allen test SATISFACTORY; o2 21 %; puncture site RADIAL RIGHT
[2024-08-01 22:59] LABS: SaO2 99.6 %
[2024-08-02] VITALS (24 sets, daily range): BP systolic 88–193; BP diastolic 36–177; O2SAT 84–100
[2024-08-02] MEDS ORDERED: NOREPINEPHRINE BITARTRATE 1 MG/ML AMPUL IV ONE (05:48)
[2024-08-02 06:49] LABS: HEMATOCRIT 26.3 % (36.0-45.00); MEAN CORPUSCULAR HGB CONC 33.9 g/dl (32.0-36.0); RED BLOOD COUNT 3.17 M/uL (4.00-6.00); RED CELL DISTRIBUTION WIDTH 18.7 % (11.5-14.5)
[2024-08-02 06:52] LABS: HEMOGLOBIN 8.9 g/dL (12.0-15.00); PLATELET COUNT 75 K/uL (150-450)
[2024-08-02 07:45] LABS: ALBUMIN 1.8 gm/dL (3.4-5.0); BILIRUBIN TOTAL 0.75 mg/dL (0.3-1.2); CALCIUM 7.3 mg/dL (8.5-10.1); CREATININE SERUM 0.87 mg/dL (0.55-1.02); GFR 62.49; GLOBULINA 2.4 G/DL (2.4-3.5); MAGNESIUM 1.8 mg/dL (1.8-2.4); PHOSPHOROUS 2.1 mg/dL (2.5-4.9); TOTAL PROTEIN 4.2 gm/dL (6.4-8.2)
[2024-08-02 08:03] LABS: C-REACTIVE PROTEIN 3.84 MG/DL (0.00-0.29)
[2024-08-02 08:04] LABS: POTASSIUM 2.94 mEq/L (3.5-5.1)
[2024-08-02] MEDS ORDERED: POTASSIUM CHLORIDE IN WATER 100 ML IV NR (08:30)
[2024-08-02 08:48] LABS: MYCOPLASMA PNEUMONIAE IGM NON REACTIVE (NO REACTIVE)
[2024-08-02] MEDS ORDERED: AMIODARONE HCL 200 MG TABLET NGT SCH (09:00)
[2024-08-02] MEDS ORDERED: PANTOPRAZOLE SODIUM 80 MG in 0.9 % SODIUM CHLORIDE 100 ML IV SCH (09:00)
[2024-08-02 12:56] LABS: ABG PH 7.509 (7.35-7.45); ABG PO2 429.3 mmHg (80-100); ABG pCO2 36.3 mmHg (35-45); BASE EXCESS 5.2 mmol/l; BICARBONATE 28.2 mmol/l (23-25); Tco2 29.3 mmol/l
[2024-08-02 12:57] LABS: allen test NO SATISFACTORY; o2 80 %; puncture site RADIAL RIGHT
[2024-08-02] MEDS ORDERED: POTASSIUM CHLORIDE IN WATER 40 MEQ/100 ML PIGGYBAG IV NR (15:00)
[2024-08-02] MEDS ORDERED: VANCOMYCIN HCL 1,000 MG VIAL ONE (15:21)
[2024-08-02] MEDS ORDERED: HYDROCORTISONE SODIUM SUCC/PF 50 MG/ML ML IV ONE (15:45)
[2024-08-02] MEDS ORDERED: HYDROCORTISONE SODIUM SUCC/PF 100 MG VIAL ONE (15:53)
[2024-08-02] MEDS ORDERED: CIPROFLOXACIN IN 5 % DEXTROSE 200 ML IV SCH (17:00)
[2024-08-02] MEDS ORDERED: AMINO ACIDS/PROTEIN HYDROLYS 30 ML BLIST.PACK NGT SCH (17:00)
[2024-08-02] MEDS ORDERED: HYDROCORTISONE SODIUM SUCC/PF 100 MG VIAL IV SCH (20:00)
[2024-08-03] VITALS (23 sets, daily range): BP systolic 63–150; BP diastolic 47–97; O2SAT 94–100
[2024-08-03 03:38] LABS: HEMATOCRIT 29.6 % (36.0-45.00); HEMOGLOBIN 9.8 g/dL (12.0-15.00); MEAN CELL VOLUME 83.5 fL (80.00-100.00); MEAN CORPUSCULAR HEMOGLOBIN 27.7 pg (27.00-32.0); MEAN CORPUSCULAR HGB CONC 33.2 g/dl (32.0-36.0); PLATELET COUNT 48 K/uL (150-450); RED BLOOD COUNT 3.54 M/uL (4.00-6.00); RED CELL DISTRIBUTION WIDTH 17.8 % (11.5-14.5)
[2024-08-03] MEDS ORDERED: POTASSIUM CHLORIDE IN WATER 40 MEQ/100 ML PIGGYBAG IV ONE (06:45)
[2024-08-03] MEDS ORDERED: LEVOTHYROXINE SODIUM 100 MCG/VIAL VIAL IV NR (10:30)
[2024-08-03 11:00] LABS: ABG PH 7.536 (7.35-7.45); ABG PO2 121.5 mmHg (80-100); ABG pCO2 33.3 mmHg (35-45); BASE EXCESS 5.3 mmol/l; BICARBONATE 27.5 mmol/l (23-25); SaO2 99.2 %; Tco2 28.6 mmol/l
[2024-08-03 11:01] LABS: allen test SATISFACTORY; o2 40 %; puncture site RADIAL RIGHT
[2024-08-03] MEDS ORDERED: POTASSIUM PHOS,M-BASIC-D-BASIC 3 MM/ML VIAL IV NR (13:15)
[2024-08-03] MEDS ORDERED: POTASSIUM CHLORIDE IN WATER 40 MEQ/100 ML PIGGYBAG IV NR (13:15)
[2024-08-03] MEDS ORDERED: HYDROCORTISONE SODIUM SUCC/PF 50 MG/ML ML IV SCH (14:00)
[2024-08-03] MEDS ORDERED: SODIUM CL 0.9% 100 ML IV.SOLN IV ONE (14:26)
[2024-08-03] MEDS ORDERED: VANCOMYCIN HCL 1,000 MG VIAL ONE (16:24)
[2024-08-03] MEDS ORDERED: FentaNYL CITRATE/PF 1,000 MCG in 0.9 % SODIUM CHLORIDE 100 ML IV SCH (18:00)
[2024-08-04] VITALS (26 sets, daily range): BP systolic 49–131; BP diastolic 22–101; O2SAT 81–100
[2024-08-04 08:52] LABS: ABG PH 7.518 (7.35-7.45); ABG PO2 148.5 mmHg (80-100); ABG pCO2 31.3 mmHg (35-45); BASE EXCESS 2.8 mmol/l; BICARBONATE 24.9 mmol/l (23-25); SaO2 99.5 %; Tco2 25.8 mmol/l
[2024-08-04 08:53] LABS: allen test SATISFACTORY; o2 40 %; puncture site RADIAL RIGHT
[2024-08-04 10:23] LABS: HEMATOCRIT 31.8 % (36.0-45.00); HEMOGLOBIN 10.8 g/dL (12.0-15.00); MEAN CORPUSCULAR HEMOGLOBIN 27.9 pg (27.00-32.0); RED BLOOD COUNT 3.88 M/uL (4.00-6.00); RED CELL DISTRIBUTION WIDTH 18.3 % (11.5-14.5)
[2024-08-04 10:27] LABS: PLATELET COUNT 60 K/uL (150-450)
[2024-08-04 10:46] LABS: ALBUMIN 1.8 gm/dL (3.4-5.0); CALCIUM 7.6 mg/dL (8.5-10.1); CREATININE SERUM 0.96 mg/dL (0.55-1.02); GFR 55.78; GLOBULINA 2.9 G/DL (2.4-3.5); POTASSIUM 3.32 mEq/L (3.5-5.1); TOTAL PROTEIN 4.7 gm/dL (6.4-8.2)
[2024-08-04] MEDS ORDERED: VANCOMYCIN HCL 1,000 MG VIAL ONE (15:48)
[2024-08-05 03:57] VITALS: BP 93/76; O2SAT 100
[2024-08-05 07:11] VITALS: BP 119/89; O2SAT 98
[2024-08-05] MEDS ORDERED: IPRATROPIUM BROMIDE 0.5 MG/2.5 ML AMPUL.NEB IH ONE (12:00)
[2024-08-05] MEDS ORDERED: RACEPINEPHRINE HCL 0.5 ML AMPUL IH NR (12:00)
[2024-08-05 12:22] VITALS: BP 87/73; O2SAT 98
[2024-08-05 15:20] VITALS: BP 107/82
[2024-08-05 15:33] LABS: ABG PH 7.457 (7.35-7.45); ABG PO2 98.5 mmHg (80-100); BASE EXCESS 1.6 mmol/l; BICARBONATE 25.2 mmol/l (23-25); Tco2 26.3 mmol/l; allen test SATISFACTORY; o2 36 %; puncture site RADIAL LEFT
[2024-08-05 15:34] LABS: ABG pCO2 36.5 mmHg (35-45)
[2024-08-05 16:37] LABS: ABG PH 7.501 (7.35-7.45); ABG PO2 139.8 mmHg (80-100); ABG pCO2 31.6 mmHg (35-45)
[2024-08-05 16:38] LABS: BASE EXCESS 1.8 mmol/l; BICARBONATE 24.2 mmol/l (23-25); SaO2 99.4 %; Tco2 25.1 mmol/l; allen test SATISFACTORY; o2 40 %; puncture site RADIAL RIGHT
[2024-08-05] MEDS ORDERED: VANCOMYCIN HCL 1,000 MG VIAL ONE (17:18)
[2024-08-05 21:08] VITALS: BP 92/74; O2SAT 100
[2024-08-06] VITALS (7 sets, daily range): BP systolic 88–117; BP diastolic 60–85; O2SAT 96–100
[2024-08-06 11:53] LABS: HEMATOCRIT 29.7 % (36.0-45.00); HEMOGLOBIN 10.2 g/dL (12.0-15.00); MEAN CELL VOLUME 83.1 fL (80.00-100.00); MEAN CORPUSCULAR HEMOGLOBIN 28.4 pg (27.00-32.0); MEAN CORPUSCULAR HGB CONC 34.2 g/dl (32.0-36.0); PLATELET COUNT 52 K/uL (150-450); RED BLOOD COUNT 3.58 M/uL (4.00-6.00); RED CELL DISTRIBUTION WIDTH 18.3 % (11.5-14.5)
[2024-08-06 12:45] LABS: ALBUMIN 1.8 gm/dL (3.4-5.0); BILIRUBIN TOTAL 0.92 mg/dL (0.3-1.2); CALCIUM 7.5 mg/dL (8.5-10.1); CREATININE SERUM 0.95 mg/dL (0.55-1.02); GFR 56.46; GLOBULINA 2.7 G/DL (2.4-3.5); POTASSIUM 3.27 mEq/L (3.5-5.1); TOTAL PROTEIN 4.5 gm/dL (6.4-8.2)
[2024-08-06] MEDS ORDERED: MIDODRINE HCL 5 MG TABLET PO SCH (13:00)
[2024-08-06] MEDS ORDERED: VANCOMYCIN HCL 1,000 MG VIAL ONE (15:41)
[2024-08-06] MEDS ORDERED: CEFEPIME HCL 2,000 MG VIAL IV SCH (21:00)
[2024-08-07 04:00] VITALS: BP 94/53; O2SAT 100
[2024-08-07 07:00] VITALS: BP 91/61; O2SAT 97
[2024-08-07] MEDS ORDERED: AMIODARONE HCL 200 MG TABLET NGT SCH (09:00)
[2024-08-07] MEDS ORDERED: PANTOPRAZOLE SODIUM 40 MG in 0.9 % SODIUM CHLORIDE 8 ML IV PUSH SCH ×2 (09:00)
[2024-08-07] MEDS ORDERED: POTASSIUM CHLORIDE 20MEQ/100ML H2O PB IV NR (09:15)
[2024-08-07] MEDS ORDERED: FUROsemide 20 MG/2 ML VIAL IV SCH (11:38)
[2024-08-07 12:00] VITALS: BP 103/69; O2SAT 97
[2024-08-07] MEDS ORDERED: LEVOTHYROXINE SODIUM 100 MCG/VIAL VIAL IV NR (15:00)
[2024-08-07 15:25] VITALS: BP 102/48; O2SAT 100
[2024-08-07] MEDS ORDERED: VANCOMYCIN HCL 1,000 MG VIAL ONE (15:45)
[2024-08-07] MEDS ORDERED: ANIDULAFUNGIN 100 MG VIAL IV NR (17:00)
[2024-08-07] MEDS ORDERED: POTASSIUM CHLORIDE 20MEQ/100ML H2O PB IV SCH (17:00)
[2024-08-07 20:55] VITALS: BP 86/59; O2SAT 100
[2024-08-07] MEDS ORDERED: HYDROCORTISONE SODIUM SUCC/PF 100 MG VIAL IV SCH (21:00)
[2024-08-07 23:26] VITALS: BP 86/73; O2SAT 100
[2024-08-08 03:58] VITALS: BP 100/73; O2SAT 100
[2024-08-08 06:57] VITALS: BP 115/79; O2SAT 100
[2024-08-08 07:05] LABS: HEMATOCRIT 29.4 % (36.0-45.00); HEMOGLOBIN 10.1 g/dL (12.0-15.00); MEAN CELL VOLUME 82.9 fL (80.00-100.00); MEAN CORPUSCULAR HEMOGLOBIN 28.4 pg (27.00-32.0); MEAN CORPUSCULAR HGB CONC 34.3 g/dl (32.0-36.0); RED BLOOD COUNT 3.55 M/uL (4.00-6.00); RED CELL DISTRIBUTION WIDTH 17.4 % (11.5-14.5)
[2024-08-08 07:15] LABS: PLATELET COUNT 44 K/uL (150-450)
[2024-08-08 08:00] LABS: ALBUMIN 1.5 gm/dL (3.4-5.0); BILIRUBIN TOTAL 0.77 mg/dL (0.3-1.2); CALCIUM 7.6 mg/dL (8.5-10.1); CREATININE SERUM 0.84 mg/dL (0.55-1.02); GFR 65.07; GLOBULINA 2.7 G/DL (2.4-3.5); POTASSIUM 3.21 mEq/L (3.5-5.1); TOTAL PROTEIN 4.2 gm/dL (6.4-8.2)
[2024-08-08 08:44] LABS: T4 TOTAL 12.29 UG/DL (4.8-13.9)
[2024-08-08 08:47] LABS: TSH 16.4 uIU/mL (0.358-3.74)
[2024-08-08] MEDS ORDERED: HYDROCORTISONE SODIUM SUCC/PF 50 MG/ML ML IV SCH ×2 (09:00→21:00)
[2024-08-08] MEDS ORDERED: HYDROCORTISONE SODIUM SUCC/PF 100 MG VIAL IV SCH (09:00)
[2024-08-08 12:14] VITALS: BP 95/73; O2SAT 99
[2024-08-08 15:17] VITALS: BP 100/86; O2SAT 95
[2024-08-08] MEDS ORDERED: POTASSIUM CHLORIDE IN WATER 100 ML IV NR (16:00)
[2024-08-08] MEDS ORDERED: ANIDULAFUNGIN 100 MG VIAL IV SCH (17:00)
[2024-08-08] MEDS ORDERED: IPRATROPIUM BROMIDE 0.5 MG/2.5 ML AMPUL.NEB IH SCH (18:00)
[2024-08-08] MEDS ORDERED: IPRATROPIUM BROMIDE 0.5 MG/2.5 ML AMPUL.NEB IH ONE (18:43)
[2024-08-08 20:00] VITALS: BP 89/59; O2SAT 89
[2024-08-08] MEDS ORDERED: NOREPINEPHRINE BITARTRATE 1 MG/ML AMPUL IV ONE ×2 (22:58→22:59)
[2024-08-08 23:04] VITALS: BP 70/32; O2SAT 92
[2024-08-08 23:26] LABS: ABG pCO2 35.2 mmHg (35-45); BASE EXCESS -0.2 mmol/l; BICARBONATE 23.4 mmol/l (23-25); SaO2 74.6 %; Tco2 24.5 mmol/l
[2024-08-08 23:27] LABS: allen test SATISFACTORY; o2 100 %; puncture site RADIAL RIGHT
[2024-08-08] MEDS ORDERED: NOREPINEPHRINE BITARTRATE 8 MG in DEXTROSE 5 % IN WATER 250 ML IV SCH (23:30)
[2024-08-08] MEDS ORDERED: AMIODARONE IN DEXTROSE,ISO-OSM 360 MG/200 ML IV.SOLN IV ONE (23:45)
[2024-08-09] VITALS (21 sets, daily range): BP systolic 67–145; BP diastolic 44–109; O2SAT 85–100
[2024-08-09] MEDS ORDERED: IPRATROPIUM BROMIDE 0.5 MG/2.5 ML AMPUL.NEB IH ONE ×2 (00:09→06:03)
[2024-08-09] MEDS ORDERED: PROPOFOL 10,000 MCG/ML VIAL ONE (00:48)
[2024-08-09 04:46] LABS: ABG PH 7.321 (7.35-7.45); ABG PO2 42.5 mmHg (80-100); ABG pCO2 34.8 mmHg (35-45); BASE EXCESS -7.6 mmol/l; BICARBONATE 17.5 mmol/l (23-25); SaO2 72.2 %; Tco2 18.6 mmol/l
[2024-08-09 04:47] LABS: allen test SATISFACTORY; o2 100 %; puncture site RADIAL RIGHT
[2024-08-09] MEDS ORDERED: FentaNYL CITRATE/PF 1,000 MCG in 0.9 % SODIUM CHLORIDE 100 ML IV SCH (07:45)
[2024-08-09] MEDS ORDERED: MIDAZOLAM HCL 50 MG in 0.9 % SODIUM CHLORIDE 50 ML IV SCH (07:45)
[2024-08-09 08:51] LABS: HEMATOCRIT 35.1 % (36.0-45.00); HEMOGLOBIN 11.4 g/dL (12.0-15.00); MEAN CELL VOLUME 84.3 fL (80.00-100.00); MEAN CORPUSCULAR HEMOGLOBIN 27.3 pg (27.00-32.0); MEAN CORPUSCULAR HGB CONC 32.4 g/dl (32.0-36.0); RED BLOOD COUNT 4.17 M/uL (4.00-6.00); RED CELL DISTRIBUTION WIDTH 18.3 % (11.5-14.5)
[2024-08-09 08:55] LABS: PLATELET COUNT 42 K/uL (150-450)
[2024-08-09] MEDS ORDERED: POLYVINYL ALCOHOL 15 ML DROPS OP SCH (09:00)
[2024-08-09] MEDS ORDERED: CHLORHEXIDINE GLUCONATE 15ML BRUSH KIT MM SCH (09:00)
[2024-08-09 09:31] LABS: MAGNESIUM 1.8 mg/dL (1.8-2.4); PHOSPHOROUS 2.6 mg/dL (2.5-4.9)
[2024-08-09 09:33] LABS: C-REACTIVE PROTEIN 17.3 MG/DL (0.00-0.29); CKMB 3.9 NG/ML (0.5-3.6)
[2024-08-09 09:38] LABS: MANUAL PLATELET COUNT 94
[2024-08-09 11:13] LABS: ABG PH 7.363 (7.35-7.45); ABG PO2 81.2 mmHg (80-100); ABG pCO2 34.3 mmHg (35-45); BASE EXCESS -5.4 mmol/l; BICARBONATE 19.1 mmol/l (23-25); SaO2 95.2 %; Tco2 20.1 mmol/l
[2024-08-09] MEDS ORDERED: DEXTROSE 5%-WATER 250ML IV.SOLN ONE (11:16)
[2024-08-09] MEDS ORDERED: PHENYLEPHRINE HCL 10 MG/ML AMPUL ONE (11:16)
[2024-08-09] MEDS ORDERED: PHENYLEPHRINE HCL 80 MG in 0.9 % SODIUM CHLORIDE 1,000 ML IV SCH (11:30)
[2024-08-09] MEDS ORDERED: NOREPINEPHRINE BITARTRATE 16 MG in DEXTROSE 5 % IN WATER 500 ML IV SCH (11:30)
[2024-08-09] MEDS ORDERED: HYDROCORTISONE SODIUM SUCC/PF 50 MG/ML ML IV SCH (12:00)
[2024-08-09] MEDS ORDERED: POTASSIUM CHLORIDE IN WATER 100 ML IV NR (14:15)
[2024-08-09 15:23] LABS: allen test SATISFACTORY; o2 100 %; puncture site RADIAL RIGHT
[2024-08-09 15:33] LABS: PH,URINE 5.5 (5.0-8.0); URINE APPEARANCE Turbid; URINE BILIRRUBIN Negative (NEGATIVE); URINE BLOOD Large; URINE COLOR Dark Yellow; URINE GLUCOSE Negative (NEGATIVE); URINE KETONE Trace (NEGATIVE); URINE LEUKOCYTE Small; URINE NITRATE Negative
[2024-08-09 15:34] LABS: URINE CAST 10.89 uL (0.0-1.40); URINE EPITHELIAL CELLS 57.1 uL (0.0-38.8); URINE RBC 2528.4 uL (0.0-20.8); URINE WBC 42.7 uL (0.0-23.2)
[2024-08-09] MEDS ORDERED: TOBRAMYCIN SULFATE 40 MG/ML VIAL IV NR (16:00)
[2024-08-09 16:08] LABS: URINE CRYSTALS FEW /HPF; URINE PROTEIN 100 (NEGATIVE)
[2024-08-09] MEDS ORDERED: MEROPENEM 500 MG/VIAL VIAL IV SCH (17:00)
[2024-08-09] MEDS ORDERED: VANCOMYCIN HCL 1,000 MG VIAL ONE (20:05)
[2024-08-09] MEDS ORDERED: VANCOMYCIN HCL 1,000 MG VIAL IV SCH (21:00)
[2024-08-10] VITALS (23 sets, daily range): BP systolic 68–107; BP diastolic 48–73; O2SAT 100
[2024-08-10 07:52] LABS: HEMATOCRIT 28.9 % (36.0-45.00); HEMOGLOBIN 9.7 g/dL (12.0-15.00); MEAN CELL VOLUME 83.9 fL (80.00-100.00); MEAN CORPUSCULAR HEMOGLOBIN 28.3 pg (27.00-32.0); MEAN CORPUSCULAR HGB CONC 33.7 g/dl (32.0-36.0); RED BLOOD COUNT 3.44 M/uL (4.00-6.00); RED CELL DISTRIBUTION WIDTH 18.6 % (11.5-14.5)
[2024-08-10 08:43] LABS: ALBUMIN 1.3 gm/dL (3.4-5.0); BILIRUBIN TOTAL 0.96 mg/dL (0.3-1.2); CALCIUM 7.1 mg/dL (8.5-10.1); CREATININE SERUM 1.8 mg/dL (0.55-1.02); GLOBULINA 2.7 G/DL (2.4-3.5); POTASSIUM 4.07 mEq/L (3.5-5.1)
[2024-08-10 08:46] LABS: C-REACTIVE PROTEIN 25.2 MG/DL (0.00-0.29)
[2024-08-10 08:59] LABS: PLATELET COUNT 23 K/uL (150-450)
[2024-08-10 13:00] LABS: ABG PH 7.368 (7.35-7.45); ABG PO2 241.2 mmHg (80-100); ABG pCO2 40.9 mmHg (35-45); BASE EXCESS -2.2 mmol/l; SaO2 99.8 %; Tco2 24.2 mmol/l; allen test SATISFACTORY; o2 80 %; puncture site RADIAL LEFT
[2024-08-10] MEDS ORDERED: VANCOMYCIN HCL 1,000 MG VIAL ONE (20:19)
[2024-08-10 23:32] LABS: HEMATOCRIT 25.7 % (36.0-45.00); MEAN CELL VOLUME 83.2 fL (80.00-100.00); MEAN CORPUSCULAR HGB CONC 33.6 g/dl (32.0-36.0); RED BLOOD COUNT 3.09 M/uL (4.00-6.00)
[2024-08-10 23:46] LABS: HEMOGLOBIN 8.6 g/dL (12.0-15.00); MEAN CORPUSCULAR HEMOGLOBIN 27.8 pg (27.00-32.0); PLATELET COUNT 73 K/uL (150-450)
[2024-08-11] VITALS (24 sets, daily range): BP systolic 73–100; BP diastolic 42–73; O2SAT 98–100
[2024-08-11] MEDS ORDERED: MEROPENEM 500 MG/VIAL VIAL IV SCH (09:00)
[2024-08-11] MEDS ORDERED: CIPROFLOXACIN IN 5 % DEXTROSE 200 ML IV SCH (09:00)
[2024-08-11 10:17] LABS: ABG PO2 105.8 mmHg (80-100); ABG pCO2 36.6 mmHg (35-45); BASE EXCESS -3.4 mmol/l; BICARBONATE 21.1 mmol/l (23-25); SaO2 97.8 %; Tco2 22.2 mmol/l
[2024-08-11 10:21] LABS: allen test SATISFACTORY; o2 60 %; puncture site RADIAL RIGHT
[2024-08-11] MEDS ORDERED: AZTREONAM 2,000 MG VIAL IV SCH (17:00)
[2024-08-11] MEDS ORDERED: CEFTAZIDIME IV SCH (17:00)
[2024-08-11] MEDS ORDERED: AVIBACTAM IV SCH (17:00)
[2024-08-12] VITALS (24 sets, daily range): BP systolic 72–96; BP diastolic 46–69; O2SAT 100
[2024-08-12 06:28] LABS: HEMATOCRIT 24.6 % (36.0-45.00); MEAN CELL VOLUME 83.4 fL (80.00-100.00); MEAN CORPUSCULAR HGB CONC 34.7 g/dl (32.0-36.0); RED BLOOD COUNT 2.95 M/uL (4.00-6.00); RED CELL DISTRIBUTION WIDTH 19.2 % (11.5-14.5)
[2024-08-12 06:58] LABS: ALBUMIN 1.2 gm/dL (3.4-5.0); BILIRUBIN TOTAL 0.78 mg/dL (0.3-1.2); CALCIUM 7.4 mg/dL (8.5-10.1); CREATININE SERUM 2.16 mg/dL (0.55-1.02); GFR 21.88; GLOBULINA 2.6 G/DL (2.4-3.5); MEAN CORPUSCULAR HEMOGLOBIN 28.8 pg (27.00-32.0); POTASSIUM 3.81 mEq/L (3.5-5.1); TOTAL PROTEIN 3.8 gm/dL (6.4-8.2)
[2024-08-12 06:59] LABS: HEMOGLOBIN 8.5 g/dL (12.0-15.00); PLATELET COUNT 26 K/uL (150-450)
[2024-08-12] MEDS ORDERED: CEFTAZIDIME/AVIBACTAM 0.94GM/100ML NSS PB IV SCH (09:00)
[2024-08-12] MEDS ORDERED: AZTREONAM 2,000 MG VIAL IV SCH (09:00)
[2024-08-12 11:30] LABS: ABG PH 7.341 (7.35-7.45); ABG pCO2 34.7 mmHg (35-45); BASE EXCESS -6.5 mmol/l; BICARBONATE 18.3 mmol/l (23-25); SaO2 92.2 %; Tco2 19.4 mmol/l; o2 40 %
[2024-08-12 11:31] LABS: allen test SATISFACTORY; puncture site RADIAL LEFT
[2024-08-12] MEDS ORDERED: METRONIDAZOLE/SODIUM CHLORIDE 100 ML IV SCH (17:00)
[2024-08-13] VITALS (24 sets, daily range): BP systolic 74–109; BP diastolic 53–79; O2SAT 10–100
[2024-08-13 11:34] LABS: ABG PH 7.391 (7.35-7.45); ABG PO2 125.7 mmHg (80-100); ABG pCO2 28.8 mmHg (35-45); BASE EXCESS -6.3 mmol/l; SaO2 98.7 %; Tco2 17.9 mmol/l
[2024-08-13 11:35] LABS: allen test SATISFACTORY; o2 40 %; puncture site RADIAL LEFT
[2024-08-13 18:09] LABS: ob POSITIVE (NEGATIVE)
[2024-08-13] MEDS ORDERED: VANCOMYCIN HCL 125 MG/7.5 ML BLIST.PACK PO SCH (19:51)
[2024-08-14] VITALS (23 sets, daily range): BP systolic 68–128; BP diastolic 52–88; O2SAT 79–100
[2024-08-14] MEDS ORDERED: NOREPINEPHRINE BITARTRATE 8 MG in DEXTROSE 5 % IN WATER 250 ML IV SCH (05:00)
[2024-08-14 06:39] LABS: HEMATOCRIT 31.6 % (36.0-45.00); HEMOGLOBIN 10.3 g/dL (12.0-15.00); MEAN CELL VOLUME 84.1 fL (80.00-100.00); MEAN CORPUSCULAR HEMOGLOBIN 27.4 pg (27.00-32.0); MEAN CORPUSCULAR HGB CONC 32.5 g/dl (32.0-36.0); RED BLOOD COUNT 3.76 M/uL (4.00-6.00); RED CELL DISTRIBUTION WIDTH 19.6 % (11.5-14.5)
[2024-08-14 07:17] LABS: PLATELET COUNT 18 K/uL (150-450)
[2024-08-14 07:18] LABS: MANUAL PLATELET COUNT 30
[2024-08-14 11:29] LABS: ABG PH 7.287 (7.35-7.45); ABG PO2 100.3 mmHg (80-100); ABG pCO2 30.6 mmHg (35-45); BASE EXCESS -10.9 mmol/l; BICARBONATE 14.3 mmol/l (23-25); SaO2 96.4 %; Tco2 15.2 mmol/l
[2024-08-14 12:29] LABS: INR 1.3; PROTHROMBIN TIME 13.9 SECONDS (9.0-11.5)
[2024-08-14 12:37] LABS: ALBUMIN 1.1 gm/dL (3.4-5.0); BILIRUBIN TOTAL 0.83 mg/dL (0.3-1.2); CALCIUM 7.6 mg/dL (8.5-10.1); CREATININE SERUM 2.54 mg/dL (0.55-1.02); GFR 18.15; GLOBULINA 2.9 G/DL (2.4-3.5); MAGNESIUM 2.1 mg/dL (1.8-2.4); PHOSPHOROUS 4.7 mg/dL (2.5-4.9); POTASSIUM 4.38 mEq/L (3.5-5.1)
[2024-08-14 12:42] LABS: C-REACTIVE PROTEIN 23.5 MG/DL (0.00-0.29)
[2024-08-14 13:12] LABS: PARTIAL THROMBOPLASTIN TIME 48.5 SECONDS (22.0-34.0)
[2024-08-14 15:44] LABS: allen test SATISFACTORY; puncture site RADIAL RIGHT
[2024-08-14 15:47] LABS: o2 40 %
[2024-08-14] MEDS ORDERED: 0.9 % SODIUM CHLORIDE 1,000 ML IV ONE (16:00)
[2024-08-14] MEDS ORDERED: PHENYLEPHRINE HCL 10 MG/ML AMPUL ONE (22:59)
[2024-08-14] MEDS ORDERED: PHENYLEPHRINE HCL 80 MG in 0.9 % SODIUM CHLORIDE 1,000 ML IV SCH (23:00)
[2024-08-15] VITALS (22 sets, daily range): BP systolic 77–154; BP diastolic 42–80; O2SAT 99–100
[2024-08-15 04:23] LABS: HEMATOCRIT 25.9 % (36.0-45.00); MEAN CELL VOLUME 82.6 fL (80.00-100.00); MEAN CORPUSCULAR HGB CONC 33.6 g/dl (32.0-36.0); PLATELET COUNT 179 K/uL (150-450); RED BLOOD COUNT 3.13 M/uL (4.00-6.00); RED CELL DISTRIBUTION WIDTH 20.1 % (11.5-14.5)
[2024-08-15 04:26] LABS: HEMOGLOBIN 8.7 g/dL (12.0-15.00); MEAN CORPUSCULAR HEMOGLOBIN 27.7 pg (27.00-32.0)
[2024-08-15 08:47] LABS: ABG PH 7.268 (7.35-7.45); ABG PO2 83.5 mmHg (80-100); ABG pCO2 31.5 mmHg (35-45); BASE EXCESS -11.5 mmol/l; BICARBONATE 14.1 mmol/l (23-25); SaO2 93.7 %; Tco2 15.1 mmol/l
[2024-08-15 08:54] LABS: allen test NO SATISFACTORY; o2 40 %; puncture site RADIAL LEFT
[2024-08-15] MEDS ORDERED: NITROGLYCERIN 1 INCH OINT..GM. TD SCH (17:00)
[2024-08-16] VITALS (23 sets, daily range): BP systolic 32–108; BP diastolic 21–89; O2SAT 100
[2024-08-16] MEDS ORDERED: ZINC OXIDE 30 GM,SILVER SULFADIAZINE 50 GM,NYSTATIN 30 GM TOP SCH (09:00)
[2024-08-16 11:30] LABS: ABG PH 7.254 (7.35-7.45); ABG PO2 63.7 mmHg (80-100); ABG pCO2 32.2 mmHg (35-45); BICARBONATE 13.9 mmol/l (23-25); SaO2 86.6 %; Tco2 14.9 mmol/l
[2024-08-16 11:31] LABS: allen test SATISFACTORY; o2 40 %; puncture site RADIAL LEFT
[2024-08-16 13:45] LABS: CALCIUM 7.5 mg/dL (8.5-10.1); CHOL HDL RATIO 5.6 (0-5.0); CREATININE SERUM 2.85 mg/dL (0.55-1.02); GFR 15.89; POTASSIUM 4.84 mEq/L (3.5-5.1)
[2024-08-16] MEDS ORDERED: AMINO ACIDS 4.25%/DEXTROSE 10% 1,000 ML CENTRAL SCH (17:00)
[2024-08-16] MEDS ORDERED: DOPamine HCL 400MG/D5w 250ML PLAST..BAG IV ONE (17:01)
[2024-08-16] MEDS ORDERED: DOPamine HCL IN DEXTROSE 5 % 250 ML IV SCH (17:15)
[2024-08-16] MEDS ORDERED: VANCOMYCIN HCL 1,000 MG VIAL IV NR (18:15)
[2024-08-16] MEDS ORDERED: VANCOMYCIN HCL 1,000 MG VIAL ONE (18:20)
[2024-08-16] MEDS ORDERED: PANTOPRAZOLE SODIUM 40 MG/VIAL VIAL ONE (22:06)
[2024-08-17] VITALS (20 sets, daily range): BP systolic 66–110; BP diastolic 36–59; O2SAT 94–100
[2024-08-17] MEDS ORDERED: DEXTROSE 5%-WATER 250ML IV.SOLN ONE ×2 (00:57→05:14)
[2024-08-17 07:54] LABS: MEAN CELL VOLUME 89.5 fL (80.00-100.00); MEAN CORPUSCULAR HGB CONC 31.1 g/dl (32.0-36.0); RED BLOOD COUNT 2.25 M/uL (4.00-6.00); RED CELL DISTRIBUTION WIDTH 22.5 % (11.5-14.5)
[2024-08-17 08:02] LABS: HEMATOCRIT 20.2 % (36.0-45.00); HEMOGLOBIN 6.3 g/dL (12.0-15.00); PLATELET COUNT 49 K/uL (150-450)
[2024-08-17 08:24] LABS: BILIRUBIN TOTAL 1.33 mg/dL (0.3-1.2); CALCIUM 6.8 mg/dL (8.5-10.1); CREATININE SERUM 2.66 mg/dL (0.55-1.02); GFR 17.21; GLOBULINA 2.1 G/DL (2.4-3.5); POTASSIUM 5.03 mEq/L (3.5-5.1); TOTAL PROTEIN 2.9 gm/dL (6.4-8.2)
[2024-08-17 09:09] LABS: ABG PO2 402.4 mmHg (80-100); ABG pCO2 22.8 mmHg (35-45); BASE EXCESS -26.9 mmol/l; BICARBONATE 4.6 mmol/l (23-25); SaO2 99.8 %; Tco2 5.3 mmol/l
[2024-08-17 09:30] LABS: ALBUMIN 0.8 gm/dL (3.4-5.0)
[2024-08-17 15:34] LABS: ABG PH 6.925 (7.35-7.45); allen test SATISFACTORY; o2 100 %; puncture site RADIAL LEFT
== END 2024-08-18 14:27 | disposition expired | DRG 870 ==
LOC: ER 15:09 → ICU-2 21:26 → ICU 21:26
PROVIDERS: General Practice; Internal Medicine; Internal Medicine Critical Care Medicine; Internal Medicine Endocrinology, Diabetes & Metabolism; Internal Medicine Infectious Disease; Student in an Organized Health Care Education/Training Program; ADMIT Internal Medicine; ATTEND Internal Medicine
PROC: BW21ZZZ Computerized Tomography (CT Scan) of Abdomen and Pelvis (ICD-10-PCS; 2024-07-31)
PROC: BW24ZZZ Computerized Tomography (CT Scan) of Chest and Abdomen (ICD-10-PCS; 2024-07-31)
PROC: B24BZZZ Ultrasonography of Heart with Aorta (ICD-10-PCS; 2024-07-31)
PROC: 0BH17EZ Insertion of Endotracheal Airway into Trachea, Via Natural or Artificial Opening (ICD-10-PCS; 2024-08-01)
PROC: 5A1945Z Respiratory Ventilation, 24-96 Consecutive Hours (ICD-10-PCS; 2024-08-01)
PROC: 02HV33Z Insertion of Infusion Device into Superior Vena Cava, Percutaneous Approach (ICD-10-PCS; 2024-08-01)
PROC: 30233N1 Transfusion of Nonautologous Red Blood Cells into Peripheral Vein, Percutaneous Approach (ICD-10-PCS; 2024-08-02)
PROC: B54DZZZ Ultrasonography of Bilateral Lower Extremity Veins (ICD-10-PCS; 2024-08-02)
PROC: 0BP1XDZ Removal of Intraluminal Device from Trachea, External Approach (ICD-10-PCS; 2024-08-04)
PROC: 5A1955Z Respiratory Ventilation, Greater than 96 Consecutive Hours (ICD-10-PCS; principal; 2024-08-09)
PROC: 0BH17EZ Insertion of Endotracheal Airway into Trachea, Via Natural or Artificial Opening (ICD-10-PCS; 2024-08-09)
PROC: 30233R1 Transfusion of Nonautologous Platelets into Peripheral Vein, Percutaneous Approach (ICD-10-PCS; 2024-08-10)
DX: A40.3 Sepsis due to Streptococcus pneumoniae (principal); J69.0 Pneumonitis due to inhalation of food and vomit; K65.1 Peritoneal abscess; R65.21 Severe sepsis with septic shock; J96.01 Acute respiratory failure with hypoxia; N39.0 Urinary tract infection, site not specified; I50.20 Unspecified systolic (congestive) heart failure; I42.8 Other cardiomyopathies; N17.9 Acute kidney failure, unspecified; K55.8 Other vascular disorders of intestine; I95.89 Other hypotension; I48.91 Unspecified atrial fibrillation; K74.69 Other cirrhosis of liver; I46.9 Cardiac arrest, cause unspecified; E87.6 Hypokalemia; D69.6 Thrombocytopenia, unspecified; B96.4 Proteus (mirabilis) (morganii) as the cause of diseases classified elsewhere; B96.5 Pseudomonas (aeruginosa) (mallei) (pseudomallei) as the cause of diseases classified elsewhere; B96.89 Other specified bacterial agents as the cause of diseases classified elsewhere; E03.9 Hypothyroidism, unspecified; E78.5 Hyperlipidemia, unspecified; I11.0 Hypertensive heart disease with heart failure; D64.9 Anemia, unspecified